=== PATIENT | male | born 1955 | race Caucasian/White ===

== ENCOUNTER → 2017-05-08 | Outpatient (CLI) | payer BC ==
[2017-05-08 10:59] LABS: CH 30.6; CHCM 35.1; HCT 40.7 % (39.0-53.0); HDW 2.93; MCH 30.3 pg (25.0-35.0); MCHC 34.5 g/dL (31.0-37.0); MCV 87.7 fL (80.0-100.0); RBC 4.64 m/uL (4.30-5.90); WBC 5.1 k/uL (3.8-10.6)
[2017-05-08 11:26] LABS: ALT 33 U/L (21-72); AST 29 U/L (17-59); Alkaline Phosphatase 65 U/L (38-126); Anion Gap 11 mmol/L; Blood Urea Nitrogen 16 mg/dL (9-20); Calcium 8.9 mg/dL (8.4-10.2); Carbon Dioxide 26 mmol/L (22-30); Chloride 106 mmol/L (98-107); Cholesterol 126 mg/dL (<200); Glucose 86 mg/dL (74-99); HDL Cholesterol 40 mg/dL (40-60); Non-African American GFR(MDRD) >60 (>60 ml/min/1.73 sqM); Potassium 4.4 mmol/L (3.5-5.1); Sodium 143 mmol/L (137-145); Total Bilirubin 1.5 mg/dL (0.2-1.3); Total Protein 6.7 g/dL (6.3-8.2); Triglycerides 78 mg/dL (<150)
== END | disposition home or self-care (01) ==
LOC: LABWHC1 10:11
PROVIDERS: ATTEND Internal Medicine Cardiovascular Disease
DX: I34.0 Nonrheumatic mitral (valve) insufficiency (principal)
CPT/HCPCS: 36415; 80053; 80061; 85027

== ENCOUNTER → 2020-06-16 | Outpatient (CLI) | payer MEDICARE, BC ==
[2020-06-16 17:19] LABS: Chol/HDL Ratio 2.84
== END | disposition home or self-care (01) ==
LOC: LABWHC1 07:16
PROVIDERS: ATTEND Internal Medicine Interventional Cardiology
DX: E78.2 Mixed hyperlipidemia (principal)
CPT/HCPCS: 36415; 80061; 84450; 84460

== ENCOUNTER → 2020-11-22 | Outpatient (CLI) | payer MEDICARE, BC ==
[2020-11-22 20:10] LABS: Chol/HDL Ratio 3.53
== END | disposition home or self-care (01) ==
LOC: LABWHC1 08:13
PROVIDERS: ATTEND Internal Medicine Cardiovascular Disease
DX: E78.2 Mixed hyperlipidemia (principal)
CPT/HCPCS: 36415; 80061; 84450; 84460

== ENCOUNTER → 2022-03-09 | Outpatient (CLI) | payer MEDICARE ==
--- NOTE | 2022-03-09 10:23 | XR ---
EXAMINATION TYPE: XR chest 2V DATE OF EXAM: 03/09/2022 COMPARISON: Chest x-ray January 25, 2011 HISTORY: Prostate cancer. TECHNIQUE: Frontal and lateral views of the chest are obtained. FINDINGS: There is chronic painful change without suspicious new focal air space opacity, pleural ef fusion, or pneumothorax seen. Cardiomegaly redemonstrated. Old fractures of the left lateral mid ribs again seen. Overlying sternal wires along with cardiac valve surgical prosthesis redemonstrated. IMPRESSION: Cardiomegaly and chronic changes without acute pulmonary process.
[2022-03-09 10:49] LABS: African American GFR (CKD) >90 (>60 ml/min/1.73 sqM); Blood Urea Nitrogen 15 mg/dL (9-20); Non-African American GFR(CKD) >90 (>60 ml/min/1.73 sqM)
--- NOTE | 2022-03-09 13:24 | CT ---
EXAMINATION TYPE: CT abdomen pelvis w con DATE OF EXAM: 03/09/2022 COMPARISON: None HISTORY: Prostate cancer Automated exposure control for dose reduction was used. TECHNIQUE: Helical acquisition of images was performed from the lung bases through the pelvis findin gs uneventful administration of oral and nonionic IV contrast. FINDINGS: The lung bases are clear. There is moderate cardiomegaly. The gallbladder is normal and there is no gallstone, wall thickening, pericholecystic fluid or disten tion. There is no biliary ductal dilatation. There is no focal mass or organomegaly involving the liver, pancreas, spleen or adrenal glands. The kidneys excrete contrast probably symmetrically and there is no solid renal mass or hydronephrosi s. The small simple cortical cyst of the anterior left kidney. There is no retroperitoneal adenopathy or hemorrhage in the caliber of the abdominal aorta is normal. There is mild to moderate arterioscle rotic calcification of the aorta.. The bowel loops are normal in caliber and there is no evidence of dilatation or obstruction. No infla mmatory changes are identified in the bowel wall or mesentery. There is no free intraperitoneal air or fluid. The prostate gland is markedly enlarged. There is no pelvic adenopathy, free fluid, mass or abscess. There is a single 13 mm sclerotic density in the right iliac bone which could represent metastatic di sease. A bone scan would be useful for further evaluation. IMPRESSION: 1. Moderate cardiomegaly. 2. Marked enlargement of the prostate gland. 3. Single sclerotic density in the right iliac wing and bone metastasis is not excluded. Bone scan wo uld be useful for further evaluation.
--- NOTE | 2022-03-09 14:27 | NM ---
EXAMINATION TYPE: NM bone scan whole body DATE OF EXAM: 03/09/2022 COMPARISON: CT abdomen and pelvis earlier today HISTORY: Prostate cancer. Delayed whole-body scanning was performed following the injection of 22.3 mCi Tc 99m MDP. Images acq uired 3 hours post injection. Whole body images in anterior and posterior projection along with addit ional spot views of the thorax and neck are acquired. FINDINGS: No suspicious increased radiotracer uptake to suggest metastatic disease to the bone or other signifi cant abnormality. Mild symmetric uptake bilateral knee joints felt to reflect products of degenerativ e change. IMPRESSION: As above.
== END | disposition home or self-care (01) ==
LOC: RADNMMAIN 09:38
PROVIDERS: ATTEND Urology
DX: C61 Malignant neoplasm of prostate (principal); I51.7 Cardiomegaly; R93.7 Abnormal findings on diagnostic imaging of other parts of musculoskeletal system
CPT/HCPCS: 82565; 84520; 71046; 74177; 36415; 78306; A9503; Q9967

== ENCOUNTER → 2022-04-19 | Outpatient (CLI) | payer MEDICARE ==
[2022-04-19 23:01] LABS: Basophils # (A) 0.01 X 10*3/uL (0.00-0.10); Basophils % (A) 0.2 %; Eosinophils # (A) 0.14 X 10*3/uL (0.04-0.35); Eosinophils % (A) 2.4 %; HCT 37.7 % (39.6-50.0); HGB 11.9 g/dL (13.0-17.0); Immature Grans, Automated 0.5 %; Lymphocytes # (A) 1.67 X 10*3/uL (0.90-5.00); Lymphocytes % (A) 28.2 %; MCHC 31.6 g/dL (32.0-37.0); MCV 91.7 fL (80.0-97.0); Mean Platelet Volume 11.9 fL (9.5-12.2); Monocytes # (A) 0.56 X 10*3/uL (0.20-1.00); Monocytes % (A) 9.4 %; NRBC Per 100 WBC 0 /100 WBCS (0.0-0.0); Neutrophils # (A) 3.52 X 10*3/uL (1.80-7.70); Neutrophils % (A) 59.3 %; Platelet Count 170 X 10*3/uL (140-440); RBC 4.11 X 10*6/uL (4.40-5.60); RDW 14.6 % (11.5-14.5); WBC 5.93 X 10*3/uL (4.50-10.00)
[2022-04-19 23:08] LABS: African American GFR (CKD) 106.7 (60.0-200.0); Albumin 4.1 g/dL (3.8-4.9); Albumin/Globulin Ratio 2.08 (1.60-3.17); BUN/Creat Ratio 12.29 Ratio (12.00-20.00); Blood Urea Nitrogen 9.8 mg/dL (9.0-27.0); Calcium 8.8 mg/dL (8.7-10.3); Carbon Dioxide 26.4 mmol/L (20.0-27.5); Potassium 4.6 mmol/L (3.5-5.5); Total Bilirubin 0.5 mg/dL (0.30-1.20)
[2022-04-20 02:59] LABS: Appearance,Urine Clear (Clear); Bilirubin,Urine Negative (Negative); Blood,Urine Negative (Negative); Color,Urine Yellow (Yellow); Ketones,Urine Negative (Negative); Nitrite,Urine Negative (Negative); PH, Urine 5.5 (5.0-8.0); Specific Gravity,Urine 1.009 (1.001-1.030)
== END | disposition home or self-care (01) ==
LOC: LABPAT 08:25
PROVIDERS: ATTEND Urology
DX: Z01.812 Encounter for preprocedural laboratory examination (principal); C61 Malignant neoplasm of prostate
CPT/HCPCS: 36415; 80053; 81003; 85025; 87086

== ENCOUNTER → 2022-05-18 | Outpatient (CLI) | payer MEDICARE ==
[2022-05-18 14:23] LABS: Basophils # (A) 0.01 X 10*3/uL (0.00-0.10); Basophils % (A) 0.2 %; Eosinophils # (A) 0.15 X 10*3/uL (0.04-0.35); Eosinophils % (A) 2.5 %; HCT 41.3 % (39.6-50.0); Immature Grans, Automated 0.5 %; Lymphocytes # (A) 1.48 X 10*3/uL (0.90-5.00); Lymphocytes % (A) 25.1 %; MCH 28.2 pg (27.0-32.0); MCHC 31.5 g/dL (32.0-37.0); MCV 89.6 fL (80.0-97.0); Mean Platelet Volume 11.8 fL (9.5-12.2); Monocytes # (A) 0.48 X 10*3/uL (0.20-1.00); Monocytes % (A) 8.1 %; NRBC Per 100 WBC 0 /100 WBCS (0.0-0.0); Neutrophils # (A) 3.75 X 10*3/uL (1.80-7.70); Neutrophils % (A) 63.6 %; Platelet Count 141 X 10*3/uL (140-440); RBC 4.61 X 10*6/uL (4.40-5.60); RDW 14.4 % (11.5-14.5)
[2022-05-18 15:42] LABS: African American GFR (CKD) 101.4 (60.0-200.0); Albumin 4.3 g/dL (3.8-4.9); Albumin/Globulin Ratio 1.95 (1.60-3.17); Anion Gap 11.9 mmol/L (10.00-18.00); BUN/Creat Ratio 11.78 Ratio (12.00-20.00); Blood Urea Nitrogen 10.6 mg/dL (9.0-27.0); Calcium 8.7 mg/dL (8.7-10.3); Carbon Dioxide 20.1 mmol/L (20.0-27.5); Globulin 2.2 g/dL (1.6-3.3); Non-African American GFR(CKD) 87.5 (60.0-200.0); Potassium 4.6 mmol/L (3.5-5.5); Total Bilirubin 0.7 mg/dL (0.30-1.20); Total Protein 6.5 g/dL (6.2-8.2)
[2022-05-18 18:15] LABS: Appearance,Urine Clear (Clear); Bilirubin,Urine Negative (Negative); Blood,Urine Negative (Negative); Color,Urine Yellow (Yellow); Ketones,Urine Negative (Negative); Nitrite,Urine Negative (Negative); PH, Urine 5.5 (5.0-8.0); Specific Gravity,Urine 1.011 (1.001-1.030)
== END | disposition home or self-care (01) ==
LOC: LABPAT 09:19
PROVIDERS: ATTEND Urology
DX: Z01.812 Encounter for preprocedural laboratory examination (principal); C61 Malignant neoplasm of prostate; R31.29 Other microscopic hematuria
CPT/HCPCS: 80053; 81003; 85025; 86850; 86900; 86901; 87086

== ENCOUNTER 2022-05-24 09:10 | Observation (INO) | payer MEDICARE ==
[2022-05-18 14:23] LABS: Basophils # (A) 0.01 X 10*3/uL (0.00-0.10); Basophils % (A) 0.2 %; Eosinophils # (A) 0.15 X 10*3/uL (0.04-0.35); Eosinophils % (A) 2.5 %; HCT 41.3 % (39.6-50.0); Immature Grans, Automated 0.5 %; Lymphocytes # (A) 1.48 X 10*3/uL (0.90-5.00); Lymphocytes % (A) 25.1 %; MCH 28.2 pg (27.0-32.0); MCHC 31.5 g/dL (32.0-37.0); MCV 89.6 fL (80.0-97.0); Mean Platelet Volume 11.8 fL (9.5-12.2); Monocytes # (A) 0.48 X 10*3/uL (0.20-1.00); Monocytes % (A) 8.1 %; NRBC Per 100 WBC 0 /100 WBCS (0.0-0.0); Neutrophils # (A) 3.75 X 10*3/uL (1.80-7.70); Neutrophils % (A) 63.6 %; Platelet Count 141 X 10*3/uL (140-440); RBC 4.61 X 10*6/uL (4.40-5.60); RDW 14.4 % (11.5-14.5)
[2022-05-18 15:42] LABS: African American GFR (CKD) 101.4 (60.0-200.0); Albumin 4.3 g/dL (3.8-4.9); Albumin/Globulin Ratio 1.95 (1.60-3.17); Anion Gap 11.9 mmol/L (10.00-18.00); BUN/Creat Ratio 11.78 Ratio (12.00-20.00); Blood Urea Nitrogen 10.6 mg/dL (9.0-27.0); Calcium 8.7 mg/dL (8.7-10.3); Carbon Dioxide 20.1 mmol/L (20.0-27.5); Globulin 2.2 g/dL (1.6-3.3); Non-African American GFR(CKD) 87.5 (60.0-200.0); Potassium 4.6 mmol/L (3.5-5.5); Total Bilirubin 0.7 mg/dL (0.30-1.20); Total Protein 6.5 g/dL (6.2-8.2)
[2022-05-18 18:15] LABS: Appearance,Urine Clear (Clear); Bilirubin,Urine Negative (Negative); Blood,Urine Negative (Negative); Color,Urine Yellow (Yellow); Ketones,Urine Negative (Negative); Nitrite,Urine Negative (Negative); PH, Urine 5.5 (5.0-8.0); Specific Gravity,Urine 1.011 (1.001-1.030)
[2022-05-22 14:44] VITALS: BMI 29.5
[~2022-05-24 09:10] MED LIST: DEXAMETHASONE SOD PHOSPHATE 4 MG/ML 1 ML VIAL IV ONE; HYDROmorphone 0.5 MG/0.5 ML SYRINGE IVP PRN; LIDOCAINE 1% (10MG/ML) FOR IV START INTRADERMA PRN; MIDAZOLAM 2 MG/2 ML VIAL IV PRN; ONDANSETRON 4 MG/2 ML VIAL IVP ONE
[2022-05-24] MEDS: LACTATED RINGERS 1,000 ML IV SCH (09:52)
--- NOTE | 2022-05-24 10:23 | P.HPIHPCON ---
History of Present Illness H&P Date: 05/24/22 Chief Complaint: Prostate cancer This is a 67-year-old male with history of Tarrs 7(3+4) prostate cancer, and 146 g prostate. Option of radical prostatectomy versus radiation therapy were discussed with him in detail, given his urinary symptoms discussed with him that robotic prostatectomy will be preferred approach. Risk of bleeding, infection, urinary incontinence were discussed with the patient. He understood all the risk and agreed to proceed. Surgery will performed by Dr. Hastings Consent for Procedure: I have explained the operation/procedure to the patient, including the risks, benefits, side effects, alternative therapies (including not receiving the proposed treatment or service), the likelihood of the patient achieving his/her goals, and potential recuperation problems for the procedure/sedation/analgesia, as well as any blood products, if indicated. I also explained to the patient the risks, benefits and side effects of the alternatives, as well as the risks related to not receiving the proposed procedure, care, treatment, or services. Past Medical History Past Medical History: Coronary Artery Disease (CAD), Cancer, Hyperlipidemia, Hypertension, Prostate Disorder, Sleep Apnea/CPAP/BIPAP Additional Past Medical History / Comment(s): Mechanical heart valve, [facility] [place]. Hx BPH; Prostate shows traces of cancer cells. History of Any Multi-Drug Resistant Organisms: None Reported Past Surgical History: Cardiac Valve Replacement, Heart Catheterization Additional Past Surgical History / Comment(s): UPPP surgery. Mitral valve repair x2, then a mechanical heart valve replacement 2010. Cataracts bilat. Past Anesthesia/Blood Transfusion Reactions: No Reported Reaction, Motion Sickness Smoking Status: Former smoker - Past Family History Father Family Medical History: Prostate Disorder Additional Family Medical History / Comment(s): prostate cancer Medications and Allergies Home Medications Medication Instructions Recorded Confirmed Type Aspirin [Adult Low Dose Aspirin EC] 81 mg PO DAILY 05/22/22 05/24/22 History Finasteride [Proscar] 5 mg PO HS 05/22/22 05/24/22 History Glucos Sul 2Kcl/MSM/Chond/C/Mn 1 each PO DAILY 05/22/22 05/24/22 History [Glucosamine Chondroitin Cap] Simvastatin [Zocor] 20 mg PO HS 05/22/22 05/24/22 History Tamsulosin [Flomax] 0.4 mg PO HS 05/22/22 05/24/22 History Warfarin [Coumadin] 2.5 mg PO SUTUTHSA 05/22/22 05/24/22 History Warfarin [Coumadin] 5 mg PO MOWEFR 05/22/22 05/24/22 History atenoloL [Tenormin] 25 mg PO DAILY 05/22/22 05/24/22 History lisinopriL [Zestril] 20 mg PO DAILY 05/22/22 05/24/22 History Enoxaparin [Lovenox] 60 mg SQ Q12H 05/24/22 05/24/22 History Allergies Allergy/AdvReac Type Severity Reaction Status Date / Time No Known Allergies Allergy Verified 05/24/22 09:50 Surgical - Exam Vital Signs Temp Pulse Resp BP Pulse Ox 96.7 F L 65 18 144/83 98 05/24/22 09:51 05/24/22 09:51 05/24/22 09:51 05/24/22 09:51 05/24/22 09:51 - General no distress, no pain - ENT normal nares, normal mucosa - Respiratory normal expansion, normal respiratory effort Results - Labs 05/18/22 09:37 05/18/22 09:37 Assessment and Plan Assessment: Or for robotic prostatectomy
[2022-05-24 10:37] LABS: INR 1.1 (<1.2); Prothrombin Time 11.5 sec (9.0-12.0)
[2022-05-24] MEDS ORDERED: ROCURONIUM 10 MG/ML (5 ML VIAL) IV ONE (11:10)
[2022-05-24] MEDS ORDERED: NEOSTIGMINE 1 MG/ML 10 ML VIAL ONE (11:10)
[2022-05-24] MEDS ORDERED: GLYCOPYRROLATE 0.2 MG/ML 2 ML VIAL ONE (11:10)
[2022-05-24] MEDS ORDERED: HYDROmorphone (PF) 1 MG/ML ONE (11:10)
[2022-05-24] MEDS ORDERED: MIDAZOLAM 2 MG/2 ML VIAL ONE (11:10)
[2022-05-24] MEDS ORDERED: SUCCINYLCHOLINE CHLORIDE VIAL 200 MG/10 ML VIAL IV ONE (11:10)
[2022-05-24] MEDS ORDERED: LIDOCAINE 2% INJ 20 MG/ML (2 ML VIAL) ONE (11:10)
[2022-05-24] MEDS ORDERED: SUCCINYLCHOLINE CHLORIDE 100 MG/5 ML SYR IV ONE (11:10)
[2022-05-24] MEDS ORDERED: fentaNYL (PF) 50 MCG/ML 2 ML AMP ONE (11:10)
[2022-05-24] MEDS ORDERED: LACTATED RINGERS 1,000 ML IV ONE (11:14)
[2022-05-24] MEDS ORDERED: BUPIVACAIN-EPI 0.25%-1:200,000 30 ML VIAL SQ ONE (11:59)
--- NOTE | 2022-05-24 14:02 | P.OP ---
Date of Procedure: 05/24/22 Preoperative Diagnosis: Prostate cancer Postoperative Diagnosis: prostate cancer umbilical hernia Procedure(s) Performed: Robotic radical prostatectomy Robotic bilateral extended pelvic lymphadenectomy Repair of umbilical hernia Anesthesia: MAXX Surgeon: Elsie Hastings Estimated Blood Loss (ml): 50 IV fluids (ml): 1,100 Urine output (ml): 500 Pathology: other (prostate and semina vesicles. right and left pelvic lymph nodes) Condition: stable Disposition: PACU Indications for Procedure: prostate cancer. BPH with urinary obstruction Operative Findings: Large prostate. pelvic lipomatosis, right inguinal hernia, umbilical hernia Description of Procedure: Preoperative Diagnosis:PROSTATE CANCER Postoperative Diagnosis: PROSTATE CANCER Procedure(s): 1. Robotic Radical Prostatectomy 2. Robotic Extended Pelvic lymphadenectomy 3. Vesico urethral reconstruction 4. Umbilical hernia repair Indications for Procedure:same Estimated Blood Loss:50 ml Counts: All counts correct at end of the procedure Drains and/or Packs:none Significant Events:large prostate, umbilical hernia, right inguinal hernia, pelvic lipomatosis Procedure Details: This is a patient with a history of prostate cancer. The procedure of robot assisted laparoscopic radical prostatectomy was discussed with the patient including the potential risks and complications of the procedure. He elected to proceed with the operation. A nodule was notdetected on digital exam under anesthesia. The patient was placed in a supine, Trendelenberg position with adequate padding of the pressure points, shoulders, back, legs and arms. He was then prepped and draped in the standard fashion. A 18F metcalf catheter was placed to gravity drainage. A Veress needle was placed through a juanjo-umbilical puncture and a pneumo-peritoneum created to 20mmHg during port placement which is thereafter lowered to 15mmHg. A 8mm port on the umbilicus was placed for the scope. Next, under vision a 8mm robotic ports was placed lateral to each rectus slightly below the camera port. The right pest controller assistant right iliac fossa 12mm port and right paramedian 5mm port were placed followed by the left iliac fossa 5mm port. The robot was then docked to the 8mm robotic ports and then each robotic arm and tower was checked in relation to the patient's legs and hands to avoid inadvertent compression. The peritoneal cavity was inspected and then an inverted U-shaped incision began laterally to the left medial umbilical ligament and extended high across the midline to the right umbilical ligament. The limbs of the "U" extended to the level of the vasa on both sides. We next developed the preperitoneal space and the space of Retzius. Cautery was used to dissected the bladder away from the prostate. After the anterior bladder neck was incised and the bladder entered the the posterior bladder neck was exposed and the ureteral orifices identified. The posterior bladder neck was then incised and dissected away from the prostate. The bladder neck was noted to be normaland did notrequire reconstruction. The vas and the seminal vesicles were now exposed and dissected to their insertions into the prostate and were not spared. The posterior layer of the Denonvillier's fascia was incised to enter into the plane between prostate and perirectal fat. Each lateral pedicle was controlled withclips and cautery for hemostasis. Nerve preservation was performed as listed above. The puboprostatic ligament was incised where it inserted into the apex of the prostate and a plane between urethra and dorsal venous complex developed to expose the anterior urethral surface. The anterior wall of the urethra was transected with the scissors a few millimeters distal to the apex of the prostate. DV suture was placed. The freed specimen was then inspected and placed in an endo-catch specimen retrieval bag. The prostate was removed following the completion of the anastomosis. Internal and External Iliac lymph node packets were dissected after careful visualization of the hypogastric artery and obturator nerve. There was attention paid to hemostasis with judicious use of cautery. Two 3-0 V-Lock stitches (MVAC) tied together to form a pledget were used to complete the running continuous circumferential urethrovesical anastamosis with dual layer reconstruction. The outer layer V-Lock suture was placed initially to reapproximate Denonvillier's fascia posteriorly before placing the inner layer MVAC suture as the urethrovesical anastamosis proper. After the inner layer was tied, the anastamosis was checked for leaks before closing the outer layer ante riorly. A new 20 Greek Metcalf catheter was introduced and inflated to 20cc. The bladder was filled with 250 cc saline, with the balloon to test the integrity of the anastomosis. No leak was identified. The specimen was removed after enlarging the umbilical port incision as required. The umbilical fascia was closed with PDS suture and closed in layers. All ports were closed with a subcuticular stitch. Sponge, instrument, and needle counts were correct at the end of the case. The patient tolerated the procedure well and was accompanied to the recovery room in stable condition. Implants:none Complications:none Specimen(s) Removed:prostate and seminal vesicles. Right and left pelvic lymph nodes Post-Op Condition of Patient: stable
[2022-05-24] MEDS: HYDROcodone/APAP 5-325MG 1 EACH TAB PO PRN (19:09)
[2022-05-24] MEDS: D5-0.45% NACL WITH KCL 20MEQ/L 1,000 ML IV SCH ×2 (20:44→22:02)
[2022-05-24] MEDS: ATORVASTATIN 10 MG TAB PO SCH (21:29)
[2022-05-25] MEDS: HYDROmorphone 1 MG/ML 1 ML SYRINGE IVP PRN ×2 (01:48→05:27)
[2022-05-25] MEDS: LACTATED RINGERS 1,000 ML IV SCH ×2 (07:15→23:28)
[2022-05-25] MEDS: lisinopriL 20 MG TAB PO SCH (07:27)
[2022-05-25] MEDS: atenoloL 25 MG TAB PO SCH (07:27)
--- NOTE | 2022-05-25 08:05 | P.PN ---
Subjective Progress Note Date: 05/25/22 The patient is in his first postoperative day from a radical prostatectomy robotic by . His vital signs are stable. His urine output is good. Urine is a bit bloody. He has some nausea. His abdomen is relatively soft. He has some shoulder pain from the robotic procedure. There is no evidence of subcutaneous emphysema. I will allow him to continue to rest today. Ambulate later. We will see how he does as to whether he is ready for discharge home tomorrow. Objective - Vital Signs Vital signs: Vital Signs Temp 98.5 F 05/25/22 01:29 Pulse 82 05/25/22 01:29 Resp 19 05/25/22 01:29 BP 144/74 05/25/22 07:29 Pulse Ox 97 05/25/22 01:29 FiO2 Intake & Output 05/24/22 05/25/22 05/25/22 18:59 06:59 18:59 Intake Total 1696 Output Total 120 300 Balance 1576 -300 Weight 95.5 kg Intake: IV 1400 Oral 296 Output: Urine 70 300 Estimated Blood Loss 50 Other: Voiding Method Indwelling Catheter - Labs CBC & Chem 7: 05/18/22 09:37 05/18/22 09:37
[2022-05-25] MEDS: D5-0.45% NACL WITH KCL 20MEQ/L 1,000 ML IV SCH ×2 (09:41→17:08)
[2022-05-25] MEDS: HYDROcodone/APAP 5-325MG 1 EACH TAB PO PRN ×2 (13:34→21:59)
[2022-05-25] MEDS: ATORVASTATIN 10 MG TAB PO SCH (21:59)
[2022-05-26] MEDS: D5-0.45% NACL WITH KCL 20MEQ/L 1,000 ML IV SCH ×3 (01:49→14:56)
[2022-05-26] MEDS: HYDROcodone/APAP 5-325MG 1 EACH TAB PO PRN ×3 (07:16→22:08)
[2022-05-26] MEDS: lisinopriL 20 MG TAB PO SCH (07:17)
[2022-05-26] MEDS: atenoloL 25 MG TAB PO SCH (07:17)
[2022-05-26 12:45] LABS: Basophils % (A) 0 %; Eosinophils # (A) 0.4 k/uL (0-0.7); Eosinophils % (A) 3 %; HCT 38.1 % (39.0-53.0); HGB 12.2 gm/dL (13.0-17.5); Hypochromasia Slight; Lymphocytes % (A) 9 %; MCH 29.7 pg (25.0-35.0); MCV 92.6 fL (80.0-100.0); Mean Platelet Volume 9.6; Monocytes # (A) 0.7 k/uL (0-1.0); Monocytes % (A) 7 %; Neutrophils # (A) 9.1 k/uL (1.3-7.7); Neutrophils % (A) 80 %; Platelet Count 170 k/uL (150-450); RBC 4.12 m/uL (4.30-5.90); RDW 14.3 % (11.5-15.5); WBC 11.5 k/uL (3.8-10.6)
[2022-05-26 12:57] LABS: Prothrombin Time 11.2 sec (9.0-12.0)
--- NOTE | 2022-05-26 14:45 | CONS ---
CONSULTATION REASON FOR CONSULTATION: anticoag management, requested by urology. HISTORY OF PRESENT ILLNESS: This 67-year-old gentleman with a past medical history of multiple medical problems, including mechanical valve replacement, underwent robotic radical prostatectomy for prostate cancer. The patient had interrupted anticoagulation prior to surgery and was on Lovenox. Currently there is some hematuria in the Howell catheter. The patient is slated to be discharged today. There is no history of any chest pain, palpitations, shortness of breath, hematochezia, melena. PAST MEDICAL HISTORY: History of cardiac mechanical valve replacement, mitral valve, history of hypertension, hyperlipidemia, multiple medical issues. HOME MEDICATIONS: Reviewed. They include Zestril and Coumadin. Doses and the rest of the medications are reviewed. ALLERGIES: NONE. FAMILY HISTORY: History of prostate disease in the family. SOCIAL HISTORY: Previous history of smoking. REVIEW OF SYSTEMS: Fourteen-point review of systems negative except as mentioned earlier. PHYSICAL EXAMINATION: Pulse 70, blood pressure 140/70, respiration 15. HEENT: Conjunctivae normal. NECK: No jugular venous distention. CARDIOVASCULAR: S1. S2 prosthetic. CHEST: Clear to auscultation. ABDOMEN: Soft, nontender. LEGS: No edema. No swelling. NERVOUS SYSTEM: No focal deficit. SKIN: No ulcer, rash, bleeding. JOINTS: No active deforming arthropathy. Howell catheter with some minimal hematuria, probably clearing. LABS: Hemoglobin 12.2. ASSESSMENT: 1. Status post radical prostatectomy. 2. History of mitral valve mechanical valve replacement. 3. Hypertension. 4. Hyperlipidemia. 5. Multiple medical issues. RECOMMENDATIONS AND DISCUSSION: In this 67-year-old gentleman who presented after surgery, at this time patient appears to be stable. I would recommend resuming the dose of Coumadin and check the PT/INR early next week with Cardiology, who is following the PT/INR. Otherwise, I would also recommend bridging once the hematuria is cleared. Otherwise, we will follow the patient closely. The rest of medications can be continued. I also recommend close followup with Dr. Xiong after discharge. Further recommendations to follow. MMODL / IJN: [id number] / MTDD
[2022-05-26] MEDS ORDERED: WARFARIN 5 MG TAB PO ONE (18:00)
[2022-05-26] MEDS: ATORVASTATIN 10 MG TAB PO SCH (20:32)
[2022-05-26] MEDS ORDERED: WARFARIN 2.5 MG TAB PO SCH (21:00)
[2022-05-27] MEDS: D5-0.45% NACL WITH KCL 20MEQ/L 1,000 ML IV SCH ×2 (00:19→08:12)
[2022-05-27 01:10] VITALS: RESP 18
[2022-05-27] MEDS: LACTATED RINGERS 1,000 ML IV SCH (06:01)
[2022-05-27 07:48] VITALS: BP 155/75; PULSE 76; TEMP 97
[2022-05-27 07:49] LABS: Prothrombin Time 10.9 sec (9.0-12.0)
[2022-05-27] MEDS: lisinopriL 20 MG TAB PO SCH (08:08)
[2022-05-27] MEDS: atenoloL 25 MG TAB PO SCH (08:08)
[2022-05-27] MEDS: HYDROcodone/APAP 5-325MG 1 EACH TAB PO PRN (08:11)
--- NOTE | 2022-05-27 17:36 | P.PN ---
Subjective Progress Note Date: 05/27/22 This is a 67 year old male who was admitted under urology services and underwent radical prostatectomy for prostate cancer and continues with indwelling metcalf catheter. Patient takes coumadin for valve replacement and has been resumed. Patient was also taking lovenox this past week prior to surgery. INR is 1.0 recommend continuing coumadin and hold lovenox for now and monitor INR in 2 days and follow up with cardiology that manages his coumadin. Patient is afebrile and denies chest pain or shortness of breath. Patient denies nausea or vomiting and tolerating diet. Patient to be discharged today. Review of systems: Constitutional: No reports of fatigue, fever, or chills Cardiovascular: No reports of chest pain or palpitations Respiratory: No reports of shortness of breath or cough GI: No reports of nausea, no reports of of vomiting, no reports of diarrhea : No reports of dysuria or retention, reports metcalf catheter with some blood noted Neurovascular: no reports of generalized weakness All medications have been reviewed PHYSICAL EXAMINATION: GENERAL: The patient is alert and oriented x4, Well developed, well nourished. Obese. HEENT: Pupils are round and equally reacting to light. EOMI. no scleral icterus. No conjunctival pallor. Normocephalic, atraumatic. No pharyngeal erythema. No thyromegaly. CARDIOVASCULAR: S1 and S2 muffled PULMONARY: diminished breath sounds bilaterally with no wheezing or rhonchi noted. ABDOMEN: soft. non tender on exam. Obese. non-distended, normal bowel sounds. No palpable organomegaly. MUSCULOSKELETAL: No joint swelling or deformity. EXTREMITIES: No cyanosis, clubbing, or pedal edema. NEUROLOGICAL: Gross neurological examination did not reveal any focal deficits. SKIN: No rashes. Assessment: Status post radical prostatectomy History of mitral valve mechanical valve replacement Hyperlipidemia Hypertension Multiple medical issues GI prophylaxis DVT prophylaxis Full code Plan: Recommend to continue with current medications and management and have resumed coumadin. INR is 1 and bleeding has improved. Recommend continuing coumadin and hold lovenox for now and follow up with labs INR in 2 days to monitor levels and then may possibly need to bridge with lovenox to therapeutic range again. Patient has urology appointment this week. Patient is being discharged today and prescription provided. Patient to follow up with his material checker and Dr. Xiong this week. Thank you for this consultation. The impression and plan of care has been dictated by Connie De La Cruz, nurse practitioner as directed. MD Tyler I have performed a history and examination and MDM of this patient, discussed the same with the dictator, and agree with the dictator's assessment and plan as written ,documented as a scribe. Based on total visit time, I have performed more than 50% of the visit. Any additional findings or plans will be noted. Objective - Vital Signs Vital signs: Vital Signs Temp 97.0 F L 05/27/22 07:47 Pulse 76 05/27/22 07:47 Resp 18 05/27/22 07:47 BP 155/75 05/27/22 07:47 Pulse Ox 94 L 05/27/22 07:47 FiO2 Intake & Output 05/26/22 05/27/22 05/27/22 18:59 06:59 18:59 Output Total 1000 3050 Balance -1000 -3050 Output: Urine 1000 3050 Other: Voiding Method Indwelling Catheter Indwelling Catheter Indwelling Catheter - Labs CBC & Chem 7: 05/26/22 12:33 05/18/22 09:37 Labs: Abnormal Lab Results - Last 24 Hours (Table) 05/26/22 Range/Units 12:33 WBC 11.5 H (3.8-10.6) k/uL RBC 4.12 L (4.30-5.90) m/uL Hgb 12.2 L (13.0-17.5) gm/dL Hct 38.1 L (39.0-53.0) % Neutrophils # 9.1 H (1.3-7.7) k/uL
[2022-05-27] MEDS ORDERED: WARFARIN 5 MG TAB PO ONE (18:00)
--- NOTE | 2022-05-28 13:17 | P.PN ---
Subjective Progress Note Date: 05/26/22 No acute overnight events, still having some incisional pain. Denies any nausea or vomiting. Has not passed flatus Objective - Vital Signs Vital signs: Vital Signs Temp 97.0 F L 05/27/22 07:47 Pulse 76 05/27/22 07:47 Resp 18 05/27/22 07:47 BP 155/75 05/27/22 07:47 Pulse Ox 94 L 05/27/22 07:47 FiO2 Intake & Output 05/27/22 05/28/22 05/28/22 18:59 06:59 18:59 Output Total 650 Balance -650 Output: Urine 650 Other: Voiding Method Indwelling Catheter - Constitutional General appearance: Present: no acute distress - Gastrointestinal General gastrointestinal: Present: soft. Absent: distended, tenderness - Psychiatric Psychiatric: Present: A&O x's 3 - Labs CBC & Chem 7: 05/26/22 12:33 05/18/22 09:37 Assessment and Plan Assessment: Postoperative day #2 status post robotic prostatectomy, -We'll obtain an internal medicine consult for anticoagulation recommendation -potential discharge home today versus tomorrow
--- NOTE | 2022-05-28 13:19 | P.DS ---
Providers Date of admission: 05/25/22 11:11 Expected date of discharge: 05/27/22 Attending physician: Elsie Hastings Consults: 05/26/22 08:47 Consult Physician Routine Consulting Provider: Antonieta Easley Consult Reason/Comments: medical management/ restart anticoagulant Do you want consulting provider notified?: Yes Primary care physician: Inga Wright [facility] Course: This is a 67-year-old male with history of prostate cancer. Underwent robotic prostatectomy on May [address] Hastings. Patient was admitted to the hospital postoperatively. He did have some gross hematuria postoperatively which resolved on postop day #2. He was discharged home on postop day #3, at time of discharge he was tolerating a diet, ambulating, pain was controlled. Internal medicine was consulted during the hospital admission for anticoagulation recommendation Plan - Discharge Summary Discharge Rx Participant: Yes New Discharge Prescriptions: New Cephalexin [Keflex] 500 mg PO Q12HR 3 Days #6 cap HYDROcodone/APAP 5-325MG [Gregory 5-325] 1 tab PO Q6HR PRN 3 Days #12 tab PRN Reason: Pain Continue Simvastatin [Zocor] 20 mg PO HS Warfarin [Coumadin] 5 mg PO MOWEFR Glucos Sul 2Kcl/MSM/Chond/C/Mn [Glucosamine Chondroitin Cap] 1 each PO DAILY Warfarin [Coumadin] 2.5 mg PO SUTUTHSA Aspirin [Adult Low Dose Aspirin EC] 81 mg PO DAILY atenoloL [Tenormin] 25 mg PO DAILY lisinopriL [Zestril] 20 mg PO DAILY Discontinued Tamsulosin [Flomax] 0.4 mg PO HS Finasteride [Proscar] 5 mg PO HS Enoxaparin [Lovenox] 60 mg SQ Q12H Discharge Medication List Aspirin [Adult Low Dose Aspirin EC] 81 mg PO DAILY 05/22/22 [History] Glucos Sul 2Kcl/MSM/Chond/C/Mn [Glucosamine Chondroitin Cap] 1 each PO DAILY 05/22/22 [History] Simvastatin [Zocor] 20 mg PO HS 05/22/22 [History] Warfarin [Coumadin] 2.5 mg PO SUTUTHSA 05/22/22 [History] Warfarin [Coumadin] 5 mg PO MOWEFR 05/22/22 [History] atenoloL [Tenormin] 25 mg PO DAILY 05/22/22 [History] lisinopriL [Zestril] 20 mg PO DAILY 05/22/22 [History] Cephalexin [Keflex] 500 mg PO Q12HR 3 Days #6 cap 05/27/22 [Rx] HYDROcodone/APAP 5-325MG [Gregory 5-325] 1 tab PO Q6HR PRN 3 Days #12 tab 05/27/22 [Rx] Follow up Appointment(s)/Referral(s): Elsie Hastings MD [STAFF PHYSICIAN] - 1 Week Xander Schrader MD [STAFF PHYSICIAN] - 1 Week Ambulatory/Diagnostic Orders: Prothrombin Time INR [LAB.AMB] Time Frame: 3 Days, Location: None Selected Patient Instructions/Handouts: Howell Catheter Placement and Care (DC), Robot Assisted Laparoscopic Prostatectomy (DC) Activity/Diet/Wound Care/Special Instructions: You can discontinue taking the Flomax and the Proscar Increase fluid intake it's normal to see blood in the urine No heavy lifting or straining You may shower no baths Start your Keflex prescription 1 day prior to your follow-up appointment Resume Coumadin and hold Lovenox for the next 1-2 days and have repeat PT/INR redrawn and then make continue Lovenox if INR is still subtherapeutic and strongly encouraged following up with program lead about anticoagulation this week Discharge Disposition: HOME SELF-CARE
== END 2022-05-27 11:44 | disposition home or self-care (01) ==
LOC: OR 09:10 → 4SSUR 13:59 → OR 05-25 11:11 → 4SSUR 05-25 11:11
PROVIDERS: ADMIT Urology; ATTEND Urology
DX: C61 Malignant neoplasm of prostate (principal); K42.9 Umbilical hernia without obstruction or gangrene; K40.90 Unilateral inguinal hernia, without obstruction or gangrene, not specified as recurrent; E88.2 Lipomatosis, not elsewhere classified; I48.21 Permanent atrial fibrillation; E78.2 Mixed hyperlipidemia; I10 Essential (primary) hypertension; R31.0 Gross hematuria; I34.0 Nonrheumatic mitral (valve) insufficiency; G47.30 Sleep apnea, unspecified; Z95.2 Presence of prosthetic heart valve; Z87.891 Personal history of nicotine dependence; I25.10 Atherosclerotic heart disease of native coronary artery without angina pectoris; Z98.890 Other specified postprocedural states; Z98.42 Cataract extraction status, left eye; Z98.41 Cataract extraction status, right eye; Z79.01 Long term (current) use of anticoagulants; Z79.02 Long term (current) use of antithrombotics/antiplatelets; Z79.82 Long term (current) use of aspirin; Z79.899 Other long term (current) drug therapy; Z84.2 Family history of other diseases of the genitourinary system
CPT/HCPCS: 86900; 86901; 80053; 85025 ×2; 85610 ×3; 86850; 81003; 88307; 88309; 87086; 55866; 38589; G0378 ×3; J2250; J0330 ×2; J1100; J2710; J0690; J2405; J3010; J1170 ×3; J2001

== ENCOUNTER 2022-06-14 12:09 | Emergency (ER) | payer MEDICARE ==
[2022-06-14 12:15] VITALS: RESP 18; TEMP 98.1
[2022-06-14] MEDS ORDERED: INSULIN REGULAR BOLUS (FROM DRIP BAG) IV ONE (12:29)
[2022-06-14] MEDS ORDERED: Magnesium Replacement Protocol 1 EACH MISC MISCELLANE PRN (12:29)
[2022-06-14] MEDS ORDERED: Potassium Replacement Protocol 1 EACH MISC MISCELLANE PRN (12:29)
[2022-06-14] MEDS ORDERED: SODIUM CHLORIDE 0.9% 1,000 ML IV SCH (12:30)
[2022-06-14 12:57] LABS: Appearance,Urine Turbid (Clear); Bacteria,Urine Many /hpf; Bilirubin,Urine Negative (Negative); Blood,Urine Large (Negative); Color,Urine Light Brown; Glucose,Urine (UA) Negative (Negative); Ketones,Urine Negative (Negative); Leukocyte Esterase,Urine Large (Negative); Mucus,Urine Rare /hpf; Nitrite,Urine Negative (Negative); PH, Urine 6.5 (5.0-8.0); Protein,Urine 2+ (Negative); RBC,Urine >182 /hpf (0-5); Urobilinogen,Urine <2.0 mg/dL (<2.0); WBC,Urine >182 /hpf (0-5)
[2022-06-14] MEDS ORDERED: INSULIN REGULAR 100 UNIT in SODIUM CHLORIDE 0.9% 100 ML IV SCH (13:00)
--- NOTE | 2022-06-14 13:07 | ED ---
General Adult HPI - General Chief complaint: Urogenital Stated complaint: unable to urinate Time Seen by Provider: 06/14/22 12:15 Source: patient, RN notes reviewed, old records reviewed Mode of arrival: ambulatory Limitations: no limitations - History of Present Illness Initial comments: This is a 67-year-old male who presents emergency department stating that 3 weeks ago he had his prostate removed. Patient states he had a Howell catheter in place they took it out about 2 weeks ago and since then he's been able to urinate however since last night he has not been able to urinate at all and he complains of suprapubic abdominal pain. Patient denies any back pain. Patient denies any hematuria. Patient denies any fever chills. Patient denies any nausea vomiting. Patient denies any other complaints at this time. - Related Data Home Medications Medication Instructions Recorded Confirmed Aspirin [Adult Low Dose Aspirin EC] 81 mg PO DAILY 05/22/22 06/14/22 Simvastatin [Zocor] 20 mg PO HS 05/22/22 06/14/22 Warfarin [Coumadin] 2.5 mg PO SUTUTHSA@2100 05/22/22 06/14/22 Warfarin [Coumadin] 5 mg PO MOWEFR@2100 05/22/22 06/14/22 atenoloL [Tenormin] 25 mg PO DAILY 05/22/22 06/14/22 lisinopriL [Zestril] 20 mg PO DAILY 05/22/22 06/14/22 Previous Rx's Medication Instructions Recorded Sulfamethox-Tmp 800-160Mg [Bactrim 1 each PO Q12HR #14 tab 06/14/22 DS 800-160 mg] Allergies Allergy/AdvReac Type Severity Reaction Status Date / Time No Known Allergies Allergy Verified 06/14/22 13:21 Review of Systems ROS Statement: Those systems with pertinent positive or pertinent negative responses have been documented in the HPI. ROS Other: All systems not noted in ROS Statement are negative. Past Medical History Past Medical History: Coronary Artery Disease (CAD), Cancer, Hyperlipidemia, Hypertension, Prostate Disorder, Sleep Apnea/CPAP/BIPAP Additional Past Medical History / Comment(s): Mechanical heart valve, [facility] [place]. Hx BPH; Prostate shows traces of cancer cells. History of Any Multi-Drug Resistant Organisms: None Reported Past Surgical History: Cardiac Valve Replacement, Heart Catheterization, Prostate Surgery Additional Past Surgical History / Comment(s): UPPP surgery. Mitral valve repair x2, then a mechanical heart valve replacement 2010. Cataracts bilat. Past Anesthesia/Blood Transfusion Reactions: No Reported Reaction, Motion Sickness Past Psychological History: No Psychological Hx Reported Smoking Status: Former smoker Past Alcohol Use History: None Reported Past Drug Use History: None Reported - Past Family History Father Family Medical History: Prostate Disorder Additional Family Medical History / Comment(s): prostate cancer General Exam - General Exam Comments Initial Comments: GENERAL: Patient is well-developed and well-nourished. Patient is nontoxic and well- hydrated and is in mild distress. ENT: Neck is soft and supple. Neck has full range of motion without eliciting any pain. EYES: The sclera were anicteric and conjunctiva were pink and moist. Extraocular movements were intact and pupils were equal round and reactive to light. Eyelids were unremarkable. ABDOMEN: Patient has distention of the lower abdomen and tenderness in the suprapubic region. SKIN: Skin is clear with no lesions or rashes and otherwise unremarkable. NEUROLOGIC: Patient is alert and oriented x3. Cranial nerves II through XII are grossly intact. Motor and sensory are also intact. Normal speech, volume and content. Symmetrical smile. MUSCULOSKELETAL: Normal extremities with adequate strength and full range of motion. LYMPHATICS: No significant lymphadenopathy is noted PSYCHIATRIC: Normal psychiatric evaluation. Limitations: no limitations Course Vital Signs 06/14/22 12:12 Temperature 98.1 F Pulse Rate 55 L Respiratory 18 Rate Blood Pressure 116/68 O2 Sat by Pulse 99 Oximetry Medical Decision Making - Medical Decision Making Howell catheter was placed and the patient felt considerably better and no longer any abdominal pain. Patient's urine looked infected so gave the patient a gram of Rocephin. I will send the patient home on Anaprox patient follow-up with urology for removal of the Howell catheter. - Lab Data Lab Results 06/14/22 Range/Units 12:35 Urine Color Light Brown Urine Appearance Turbid (Clear) Urine pH 6.5 (5.0-8.0) Ur Specific [place] 1.020 (1.001-1.035) Urine Protein 2+ H (Negative) Urine Glucose (UA) Negative (Negative) Urine Ketones Negative (Negative) Urine Blood Large H (Negative) Urine Nitrite Negative (Negative) Urine Bilirubin Negative (Negative) Urine Urobilinogen <2.0 (<2.0) mg/dL Ur Leukocyte Esterase Large H (Negative) Urine RBC >182 H (0-5) /hpf Urine WBC >182 H (0-5) /hpf Urine WBC Clumps Many H (None) /hpf Urine Bacteria Many H (None) /hpf Urine Mucus Rare H (None) /hpf Disposition Clinical Impression: Urinary tract infection, Urinary retention Disposition: HOME SELF-CARE Condition: Good Instructions (If sedation given, give patient instructions): Urinary Tract Infection in Men (ED) Prescriptions: Sulfamethox-Tmp 800-160Mg [Bactrim DS 800-160 mg] 1 each PO Q12HR #14 tab Is patient prescribed a controlled substance at d/c from ED?: No Referrals: Kyle Xiong MD [Primary Care Provider] - 1-2 days Time of Disposition: 13:56
[2022-06-14] MEDS ORDERED: cefTRIAXone IN SWFI 1,000 MG/10 ML SYRINGE IVP STA (13:33)
[2022-06-14] MEDS ORDERED: cefTRIAXone 1,000 MG VIAL (IM USE) IM STA (13:56)
[2022-06-14 14:50] VITALS: BP 122/81; PULSE 58
== END 2022-06-14 15:01 | disposition home or self-care (01) ==
LOC: EC 12:09
DX: N39.0 Urinary tract infection, site not specified (principal); R33.9 Retention of urine, unspecified; I25.10 Atherosclerotic heart disease of native coronary artery without angina pectoris; I10 Essential (primary) hypertension; E78.5 Hyperlipidemia, unspecified; Z87.891 Personal history of nicotine dependence; Z79.82 Long term (current) use of aspirin; Z79.899 Other long term (current) drug therapy
CPT/HCPCS: 96372 ×2; 99284 ×2; 81001; 87086; 87077; 87186; 51702; J0696

== ENCOUNTER 2022-06-15 04:29 | Emergency (ER) | payer MEDICARE ==
[2022-06-15 04:34] VITALS: TEMP 97.7
--- NOTE | 2022-06-15 06:04 | ED ---
Male Urogenital HPI - General Chief complaint: Urogenital Stated complaint: catheter issues Time Seen by Provider: 06/15/22 04:53 Source: patient Mode of arrival: ambulatory Limitations: no limitations - History of Present Illness Initial comments: This patient is a 67-year-old man who presents with concern that his Howell catheter has stopped draining urine. Patient relates that he had been in the emergency department yesterday with concerns about urinary retention, he had Howell catheter placed, and was given antibiotics for suspected urinary tract infection. Patient states that he had awakened this morning with pressure sensation over the bladder area and noticed that there does not appear to be any new drainage in the catheter bag. Patient states he feels need to urinate. Patient denies fever or chills. No chest pain/dyspnea. Patient's history is notable for having prostatectomy May 25 with . He did have a Howell catheter that was discontinued after number of days and had been doing well until developing urinary retention approximately 3 days ago. MD Complaint: other -: hour(s) Location: abdomen Radiation: none Severity: moderate Quality: dull Consistency: constant Improves with: none Worsens with: none Reports: urinary retention - Related Data Home Medications Medication Instructions Recorded Confirmed Aspirin [Adult Low Dose Aspirin EC] 81 mg PO DAILY 05/22/22 06/14/22 Simvastatin [Zocor] 20 mg PO HS 05/22/22 06/14/22 Warfarin [Coumadin] 2.5 mg PO SUTUTHSA@2100 05/22/22 06/14/22 Warfarin [Coumadin] 5 mg PO MOWEFR@2100 05/22/22 06/14/22 atenoloL [Tenormin] 25 mg PO DAILY 05/22/22 06/14/22 lisinopriL [Zestril] 20 mg PO DAILY 05/22/22 06/14/22 Previous Rx's Medication Instructions Recorded Sulfamethox-Tmp 800-160Mg [Bactrim 1 each PO Q12HR #14 tab 06/14/22 DS 800-160 mg] Allergies Allergy/AdvReac Type Severity Reaction Status Date / Time No Known Allergies Allergy Verified 06/15/22 04:34 Review of Systems ROS Statement: Those systems with pertinent positive or pertinent negative responses have been documented in the HPI. ROS Other: All systems not noted in ROS Statement are negative. Constitutional: Denies: fever, chills Respiratory: Denies: cough, dyspnea Cardiovascular: Denies: chest pain, palpitations, edema Gastrointestinal: Reports: as per HPI, abdominal pain. Denies: nausea, vomiting, diarrhea, constipation Genitourinary: Reports: as per HPI, other (Urinary retention) Musculoskeletal: Denies: back pain Neurological: Denies: headache Past Medical History Past Medical History: Coronary Artery Disease (CAD), Cancer, Hyperlipidemia, Hypertension, Prostate Disorder, Sleep Apnea/CPAP/BIPAP Additional Past Medical History / Comment(s): Mechanical heart valve, [facility] [place]. Hx BPH; Prostate shows traces of cancer cells. History of Any Multi-Drug Resistant Organisms: None Reported Past Surgical History: Cardiac Valve Replacement, Heart Catheterization, Prostate Surgery Additional Past Surgical History / Comment(s): UPPP surgery. Mitral valve repair x2, then a mechanical heart valve replacement 2010. Cataracts bilat. Past Anesthesia/Blood Transfusion Reactions: No Reported Reaction, Motion Sickness Past Psychological History: No Psychological Hx Reported Smoking Status: Former smoker Past Alcohol Use History: None Reported Past Drug Use History: None Reported - Past Family History Father Family Medical History: Prostate Disorder Additional Family Medical History / Comment(s): prostate cancer General Exam Limitations: no limitations General appearance: alert, in no apparent distress Head exam: Present: atraumatic, normocephalic Eye exam: Present: normal appearance. Absent: scleral icterus, conjunctival injection Respiratory exam: Present: normal lung sounds bilaterally. Absent: respiratory distress, wheezes, rales, rhonchi, stridor Cardiovascular Exam: Present: regular rate, normal rhythm, normal heart sounds. Absent: systolic murmur, diastolic murmur, rubs, gallop GI/Abdominal exam: Present: soft. Absent: distended, tenderness, guarding, tomas ound, mass Extremities exam: Present: normal inspection. Absent: tenderness, pedal edema Back exam: Absent: CVA tenderness (R), CVA tenderness (L) Neurological exam: Present: alert Skin exam: Present: warm, dry, intact, normal color. Absent: rash Course Vital Signs 06/15/22 06/15/22 04:30 07:30 Temperature 97.7 F Pulse Rate 73 68 Respiratory 16 18 Rate Blood Pressure 133/70 126/62 O2 Sat by Pulse 97 98 Oximetry Medical Decision Making - Medical Decision Making Patient is 67-year-old man with Howell catheter obstruction. This was flushed by nursing staff and is draining well. The urine does appear to have a trace of blood and does appear to be purulent. The patient did have IV antibiotics at his previous visit. He does have prescription for antibiotics that had been filled. Disposition Clinical Impression: Urinary tract infection, Urinary retention Disposition: HOME SELF-CARE Condition: Good Instructions (If sedation given, give patient instructions): Urinary Tract Infection in Men (ED) Is patient prescribed a controlled substance at d/c from ED?: No Referrals: Kyle Xiong MD [Primary Care Provider] - 1-2 days Junior Collins MD [STAFF PHYSICIAN] - 1-2 days
[2022-06-15 07:33] VITALS: BP 126/62; PULSE 68; RESP 18
== END 2022-06-15 08:40 | disposition home or self-care (01) ==
LOC: EC 04:29
DX: N39.0 Urinary tract infection, site not specified (principal); R33.9 Retention of urine, unspecified; I25.10 Atherosclerotic heart disease of native coronary artery without angina pectoris; E78.5 Hyperlipidemia, unspecified; I10 Essential (primary) hypertension; Z87.891 Personal history of nicotine dependence; Z79.82 Long term (current) use of aspirin; Z79.01 Long term (current) use of anticoagulants; Z79.899 Other long term (current) drug therapy
CPT/HCPCS: 51798; 99283

== ENCOUNTER 2022-06-15 16:06 | Emergency (ER) | payer MEDICARE ==
[2022-06-15 16:54] VITALS: TEMP 97.7
--- NOTE | 2022-06-15 17:14 | ED ---
General Adult HPI - General Chief complaint: Abdominal Pain Stated complaint: catheter problems Time Seen by Provider: 06/15/22 17:03 Source: patient Mode of arrival: ambulatory Limitations: no limitations - History of Present Illness Initial comments: 67-year-old male with past history of prostate cancer presents emergency Department with a clogged Howell. He had a radical prostatectomy on May [address] Hastings. He had a Howell catheter in place for 1 week. This was removed and the patient was voiding fine on his own. Reports that he began having issues on . He presented to the emergency department a Howell catheter was placed. This subsequently ended up getting blocked and the patient's had to come back into the emergency department early this morning. The catheter was flushed and began draining again. He was discharged home. He reports that around noon today the catheter stopped draining again. He has suprapubic discomfort. He is currently taking Bactrim as his urinalysis when the Howell was placed demonstrated infection. He denies any fevers. No gross hematuria. No other alleviating, precipitating or modifying factors - Related Data Home Medications Medication Instructions Recorded Confirmed Aspirin [Adult Low Dose Aspirin EC] 81 mg PO DAILY 05/22/22 06/14/22 Simvastatin [Zocor] 20 mg PO HS 05/22/22 06/14/22 Warfarin [Coumadin] 2.5 mg PO SUTUTHSA@209905/22/22 06/14/22 Warfarin [Coumadin] 5 mg PO MOWEFR@2100 05/22/22 06/14/22 atenoloL [Tenormin] 25 mg PO DAILY 05/22/22 06/14/22 lisinopriL [Zestril] 20 mg PO DAILY 05/22/22 06/14/22 Previous Rx's Medication Instructions Recorded Sulfamethox-Tmp 800-160Mg [Bactrim 1 each PO Q12HR #14 tab 06/14/22 DS 800-160 mg] Allergies Allergy/AdvReac Type Severity Reaction Status Date / Time No Known Allergies Allergy Verified 06/15/22 04:34 Review of Systems ROS Statement: Those systems with pertinent positive or pertinent negative responses have been documented in the HPI. ROS Other: All systems not noted in ROS Statement are negative. Past Medical History Past Medical History: Coronary Artery Disease (CAD), Cancer, Hyperlipidemia, Hypertension, Prostate Disorder, Sleep Apnea/CPAP/BIPAP Additional Past Medical History / Comment(s): Mechanical heart valve, [facility] [place]. Hx BPH; Prostate shows traces of cancer cells. History of Any Multi-Drug Resistant Organisms: None Reported Past Surgical History: Cardiac Valve Replacement, Heart Catheterization, Prostate Surgery Additional Past Surgical History / Comment(s): UPPP surgery. Mitral valve repair x2, then a mechanical heart valve replacement 2010. Cataracts bilat. Past Anesthesia/Blood Transfusion Reactions: No Reported Reaction, Motion Sickness Past Psychological History: No Psychological Hx Reported Smoking Status: Former smoker Past Alcohol Use History: None Reported Past Drug Use History: None Reported - Past Family History Father Family Medical History: Prostate Disorder Additional Family Medical History / Comment(s): prostate cancer General Exam Limitations: no limitations General appearance: alert, in no apparent distress Respiratory exam: Present: normal lung sounds bilaterally. Absent: respiratory distress, wheezes, rales, rhonchi, stridor Cardiovascular Exam: Present: regular rate, normal rhythm, normal heart sounds. Absent: systolic murmur, diastolic murmur, rubs, gallop, clicks GI/Abdominal exam: Present: soft, distended, tenderness (suprapubic), normal bowel sounds. Absent: guarding, rebound, rigid exam: Present: normal inspection, circumcision. Absent: testicular tenderness, urethral discharge, scrotal swelling Neurological exam: Present: alert, oriented X3, CN II-XII intact Psychiatric exam: Present: normal affect, normal mood Course Vital Signs 06/15/22 06/15/22 16:52 18:33 Temperature 97.7 F Pulse Rate 63 65 Respiratory 20 18 Rate Blood Pressure 134/78 128/71 O2 Sat by Pulse 96 98 Oximetry Medical Decision Making - Medical Decision Making Upon arrival patient was placed into room 16. Thorough history and physical exam was performed. The catheter was removed and completely replaced with a 20F. We did have 200 mL of urine output however the catheter did plug after this. I did manipulate the Howell and irrigate the Howell. I am able to instill fluids however I am unable to withdraw. Because of this I did call and speak with Dr. Ramirez. He does request CT cystography. 18-[place] is placed under Dr. Ramirez' direction. Cystoscopy is performed and the results are reviewed. Dr. Ramirez does present to the emergency department and places a Howell catheter himself. He does irrigate the patient. He is able to get out 800 mL of urine. Patient is watched in the emergency room and for an hour and the Howell catheter bag continues to drain appropriately. Patient will be discharged home at this time and is instructed follow-up with urology for catheter removal. Return for any worsening symptoms. Patient agreed and was discharged home in stable condition Disposition Clinical Impression: Cancer of prostate, Urinary retention Disposition: HOME SELF-CARE Condition: Stable Instructions (If sedation given, give patient instructions): Urinary Retention in Men (ED) Additional Instructions: Please call to make an appointment with the urologist for removal of the catheter. Return for any new or worsening symptoms Is patient prescribed a controlled substance at d/c from ED?: No Referrals: Kyle Xiong MD [Primary Care Provider] - 1-2 days Junior Collins MD [STAFF PHYSICIAN] - 1-2 days Time of Disposition: 22:24
[2022-06-15] MEDS ORDERED: LIDOCAINE URO-JET JELLY 2% 5 ML KIT URETHRAL ONE (18:22)
[2022-06-15 18:38] VITALS: BP 128/71; PULSE 65; RESP 18
[2022-06-15] MEDS ORDERED: LIDOCAINE URO-JET JELLY 2% 5 ML KIT URETHRAL STA (20:53)
--- NOTE | 2022-06-15 21:10 | CT ---
CT cystogram. History prostate surgery. Urinary retention. Comparison 03/09/2022. FINDINGS: Images are obtained from the iliac crests to the floor of the pelvis without and with the bladder con trast. Contrast was injected into the urinary bladder through the Howell catheter. Initial images show mild urinary bladder wall thickening. No free fluid in the pelvis. Contrast was instilled into the urinary bladder. The urinary bladder shows deformity at the base of t he bladder related to prostatectomy. There is some mild fat stranding around the base of the urinary bladder. Howell catheter balloon is in the prostatectomy site. There is mild irregular thickening of t he urinary bladder wall that could relate to some cystitis. There are small fat-containing inguinal h ernias. The bony pelvis appears intact. The hip joints are intact. No reflux seen into the ureters. T he ureters do not appear dilated. No ascites. The appendix appears normal. Postvoid images show retention of contrast in the urinary bladder. This could relate to some atony. IMPRESSION: Deformity of the urinary bladder related to extensive prostate resection in this patient with very la rge prostate on the preoperative exam of 03/09/2022. Mild urinary bladder wall thickening at the base. Incomplete bladder emptying. Bladder tumor not excluded. This appears similar to preoperative exam.
--- NOTE | 2022-06-15 22:27 | P.GSCN ---
History of Present Illness Consult date: 06/15/22 Reason for Consult: Urinary retention Requesting physician: Susan Montiel History of present illness: The patient is a 67-year-old white male who underwent a robotic-assisted laparoscopic prostatectomy with bilateral pelvic lymphadenectomy on 05/24/2022. He has recovered well from surgery. Upon Howell catheter removal, he was regaining continence and was essentially using pads as a precaution. His cancer was organ confined. He recently developed urinary retention and underwent Howell catheter placement. He returned to the ER with a plug catheter yesterday, and again today. The catheter has been changed/irrigated, but appears to have drained incompletely. I am consulted for this reason. A CT cystogram was obtained, showing no evidence of contrast extravasation. However, it appeared upon my review that the catheter may not be fully within the bladder. Review of Systems - Constitutional Denies chills, Denies fever - Gastrointestinal Denies constipation, Denies diarrhea - Genitourinary Reports as per HPI Past Medical History Past Medical History: Coronary Artery Disease (CAD), Cancer, Hyperlipidemia, Hypertension, Prostate Disorder, Sleep Apnea/CPAP/BIPAP Additional Past Medical History / Comment(s): Mechanical heart valve, [facility] [place]. Hx BPH; Prostate shows traces of cancer cells. History of Any Multi-Drug Resistant Organisms: None Reported Past Surgical History: Cardiac Valve Replacement, Heart Catheterization, Prostate Surgery Additional Past Surgical History / Comment(s): UPPP surgery. Mitral valve repair x2, then a mechanical heart valve replacement 2010. Cataracts bilat. Past Anesthesia/Blood Transfusion Reactions: No Reported Reaction, Motion Sickness Past Psychological History: No Psychological Hx Reported Smoking Status: Former smoker Past Alcohol Use History: None Reported Past Drug Use History: None Reported - Past Family History Father Family Medical History: Prostate Disorder Additional Family Medical History / Comment(s): prostate cancer Medications and Allergies Home Medications Medication Instructions Recorded Confirmed Type Aspirin [Adult Low Dose Aspirin EC] 81 mg PO DAILY 05/22/22 06/14/22 History Simvastatin [Zocor] 20 mg PO HS 05/22/22 06/14/22 History Warfarin [Coumadin] 2.5 mg PO SUTUTHSA@209905/22/22 06/14/22 History Warfarin [Coumadin] 5 mg PO MOWEFR@209905/22/22 06/14/22 History atenoloL [Tenormin] 25 mg PO DAILY 05/22/22 06/14/22 History lisinopriL [Zestril] 20 mg PO DAILY 05/22/22 06/14/22 History Sulfamethox-Tmp 800-160Mg [Bactrim 1 each PO Q12HR #14 tab 06/14/22 Rx DS 800-160 mg] Allergies Allergy/AdvReac Type Severity Reaction Status Date / Time No Known Allergies Allergy Verified 06/15/22 04:34 Surgical - Exam Vital Signs Temp Pulse Resp BP Pulse Ox 97.7 F 63 20 134/78 96 06/15/22 16:52 06/15/22 16:52 06/15/22 16:52 06/15/22 16:52 06/15/22 16:52 - General well developed, well nourished, no distress - Respiratory normal respiratory effort - Abdomen Abdomen: soft, non tender, no guarding, no rigid, no rebound - Genitourinary normal penis with no external lesions, testicles non-tender - Psychiatric oriented to time, oriented to person, oriented to place, speech is normal, memory intact Results - Imaging CT scan - pelvis: report reviewed, image reviewed Assessment and Plan (1) Urinary retention Current Visit: No Status: Acute Code(s): R33.9 - RETENTION OF URINE, UNSPECIFIED SNOMED Code(s): 249482876 (2) Urinary tract infection Current Visit: No Status: Acute Code(s): N39.0 - URINARY TRACT INFECTION, SITE NOT SPECIFIED SNOMED Code(s): 42030554 Plan: I manually irrigated the Howell catheter numerous times, removing debris and small clots. Several hundred mL of urine was irrigated from the bladder. Once this was completed, the catheter was patent and draining well. However, I chose to remove the catheter and replace it with an 18-[place] coud-tip catheter, which I was able to advance to the hub without resistance and inflate the balloon. The catheter subsequently drained well. I'm very confident that the catheter is properly positioned and is draining well. He will be discharged home with the catheter after being observed in the ER a little while longer. He will continue to take Bactrim, pending the final urine culture result (the preliminary urine culture obtained yesterday shows greater than 100,000 gram- negative bacilli). He has been instructed to follow up with Dr. Collins.
== END 2022-06-15 23:54 | disposition home or self-care (01) ==
LOC: EC 16:06
DX: C61 Malignant neoplasm of prostate (principal); I10 Essential (primary) hypertension; I25.10 Atherosclerotic heart disease of native coronary artery without angina pectoris; E78.5 Hyperlipidemia, unspecified; Z87.891 Personal history of nicotine dependence; Z79.899 Other long term (current) drug therapy; Z79.82 Long term (current) use of aspirin; Z79.01 Long term (current) use of anticoagulants
CPT/HCPCS: 51702; 51798; 72192; 99284

== ENCOUNTER → 2022-08-02 | Outpatient (CLI) | payer MEDICARE ==
[2022-08-02 17:23] LABS: INR >9.00 (0.90-1.11); Prothrombin Time >90.0 sec (9.9-11.9)
== END | disposition home or self-care (01) ==
LOC: LABWHC1 10:11
PROVIDERS: ATTEND Internal Medicine Cardiovascular Disease
DX: I48.21 Permanent atrial fibrillation (principal)
CPT/HCPCS: 36415; 85610

== ENCOUNTER → 2023-03-29 | Outpatient (CLI) | payer MEDICARE ==
[2023-03-29 16:05] LABS: ALT 18 U/L (10-49); AST 25 U/L (14-35); Chol/HDL Ratio 3.01 Ratio; LDL Cholesterol,Calculated 71.7 mg/dL (0.0-131.0)
== END | disposition home or self-care (01) ==
LOC: LABWHC1 08:10
PROVIDERS: ATTEND Internal Medicine Cardiovascular Disease
DX: E78.2 Mixed hyperlipidemia (principal)
CPT/HCPCS: 36415; 80061; 84450; 84460

== ENCOUNTER 2024-04-25 17:52 | Emergency (ER) | payer MEDICARE ==
[2024-04-25 18:12] VITALS: TEMP 98.3
--- NOTE | 2024-04-25 18:13 | XR ---
EXAMINATION TYPE: XR ankle complete LT DATE OF EXAM: 04/25/2024 COMPARISON: None HISTORY: Pain TECHNIQUE: 3 view left ankle FINDINGS: Ankle mortise is intact. No acute fracture or dislocation is evident. Soft tissues are norm al. Plantar calcaneal heel spur is present. Follow-up exams can be performed 7-10 days from acute trauma for continued pain. IMPRESSION: 1. No acute osseous abnormality left ankle
--- NOTE | 2024-04-25 18:14 | ED ---
Fall HPI - General Chief Complaint: Fall Stated Complaint: Injury to L foot Time Seen by Provider: 04/25/24 18:05 Source: patient - History of Present Illness Initial Comments: 69-year-old male presenting to the ED with complaints of left foot/ankle pain. Patient reports he was getting ready to ride his bike when he accidentally twisted his left ankle. Reports at this time heard/felt a "snap". States he was not having any pain after this so he went on a 30 to 45-minute bike ride with no difficulties. Shortly after returning home was watching the [employer] game and when he stood up noticed pain in his left ankle prompting presentation to the ED for further evaluation. - Related Data Home Medications Medication Instructions Recorded Confirmed Aspirin [Adult Low Dose Aspirin EC] 81 mg PO DAILY 05/22/22 06/14/22 Simvastatin [Zocor] 20 mg PO HS 05/22/22 06/14/22 Warfarin [Coumadin] 2.5 mg PO SUTUTHSA@2100 05/22/22 06/14/22 Warfarin [Coumadin] 5 mg PO MOWEFR@2100 05/22/22 06/14/22 atenoloL [Tenormin] 25 mg PO DAILY 05/22/22 06/14/22 lisinopriL [Zestril] 20 mg PO DAILY 05/22/22 06/14/22 Previous Rx's Medication Instructions Recorded Sulfamethox-Tmp 800-160Mg [Bactrim 1 each PO Q12HR #14 tab 06/14/22 DS 800-160 mg] Allergies Allergy/AdvReac Type Severity Reaction Status Date / Time No Known Allergies Allergy Verified 04/25/24 17:58 Review of Systems ROS Statement: Those systems with pertinent positive or pertinent negative responses have been documented in the HPI. ROS Other: All systems not noted in ROS Statement are negative. Past Medical History Past Medical History: Coronary Artery Disease (CAD), Cancer, Hyperlipidemia, Hypertension, Prostate Disorder, Sleep Apnea/CPAP/BIPAP Additional Past Medical History / Comment(s): Mechanical heart valve, [facility] [place]. Hx BPH; Prostate shows traces of cancer cells. History of Any Multi-Drug Resistant Organisms: None Reported Past Surgical History: Cardiac Valve Replacement, Heart Catheterization, Prostate Surgery Additional Past Surgical History / Comment(s): UPPP surgery. Mitral valve repair x2, then a mechanical heart valve replacement 2010. Cataracts bilat. Past Anesthesia/Blood Transfusion Reactions: No Reported Reaction, Motion Sickness Past Psychological History: No Psychological Hx Reported Smoking Status: Former smoker Past Alcohol Use History: None Reported Past Drug Use History: None Reported - Past Family History Father Family Medical History: Prostate Disorder Additional Family Medical History / Comment(s): prostate cancer General Exam - General Exam Comments Initial Comments: Visual Physical Exam Vital signs reviewed General: Well-appearing, nontoxic, no acute distress. Head: Normocephalic, atraumatic Eyes: PERRLA, EOMI ENT: Airway patent Chest: Nonlabored breathing Skin: No visual rash, normal skin tone Neuro: Alert and oriented 3 Musculoskeletal: No gross abnormalities Limitations: no limitations General appearance: alert, in no apparent distress Eye exam: Present: normal appearance Neck exam: Present: normal inspection Respiratory exam: Present: normal lung sounds bilaterally Cardiovascular Exam: Present: regular rate GI/Abdominal exam: Present: soft Extremities exam: Present: other (Tender over the lateral malleolus and proximal left fifth digit. Ambulates without difficulty. Strength and sensation intact. DP/PT pulses intact.) Neurological exam: Present: alert, oriented X3 Skin exam: Present: warm, dry Course Vital Signs 04/25/24 17:54 Temperature 98.3 F Pulse Rate 73 Respiratory 18 Rate Blood Pressure 181/78 O2 Sat by Pulse 99 Oximetry Medical Decision Making - Medical Decision Making Was pt. sent in by a medical professional or institution ([facility], ICE HOCKEY COACH, urgent care, hospital, or long-term...) When possible be specific @ -No Did you speak to anyone other than the patient for history (EMS, parent, family, police, friend...)? What history was obtained from this source @ -No Did you review nursing and triage notes (agree or disagree)? Why? @ -I reviewed and agree with nursing and triage notes Were old charts reviewed (outside hosp., previous admission, EMS record, old EKG, old radiological studies, urgent care reports/EKG's, long-term records)? Report findings @ -No old charts were reviewed Differential Diagnosis (chest pain, altered mental status, abdominal pain women, abdominal pain men, vaginal bleeding, weakness, fever, dyspnea, syncope, headache, dizziness, GI bleed, back pain, seizure, CVA, palpatations, mental health, musculoskeletal)? @ -Differential Musculoskeletal Muscular strain, contusion, ligament sprain, fracture, arthritis, septic arthritis, bursitis, cellulitis, muscle spasm, nerve compression, DVT, arterial occlusion, herpes zoster, electrolyte abnormality, tumor.... This is not meant to be in all inclusive list EKG interpreted by me (3pts min.). @ -As above X-rays interpreted by me (1pt min.). @ -X-ray of the left ankle interpreted me revealing no evidence of acute finding. CT interpreted by me (1pt min.). @ -None done U/S interpreted by me (1pt. min.). @ -None done What testing was considered but not performed or refused? (CT, X-rays, U/S, labs)? Why? @ -None What meds were considered but not given or refused? Why? @ -None Did you discuss the management of the patient with other professionals (professionals i.e. , PA, ICE HOCKEY COACH, lab, RT, psych nurse, professor of social work, x ray equipment mechanic, teacher, air defense artillery officer, spring encaser)? Give summary @ -No Was smoking cessation discussed for >3mins.? @ -No Was critical care preformed (if so, how long)? @ -No Were there social determinants of health that impacted care today? How? (Homelessness, low income, unemployed, alcoholism, drug addiction, transportation, low edu. Level, literacy, decrease access to med. care, fdc, rehab)? @ -No Was there de-escalation of care discussed even if they declined (Discuss DNR or withdrawal of care, Hospice)? DNR status @ -No What co-morbidities impacted this encounter? (DM, HTN, Smoking, COPD, CAD, Cancer, CVA, ARF, Chemo, Hep., AIDS, mental health diagnosis, sleep apnea, morbid obesity)? @ -None Was patient admitted / discharged? Hospital course, mention meds given and route, prescriptions, significant lab abnormalities, going to OR and other pertinent info. @ -Discharge 69-year-old male presenting to the ED with complaints of ankle/left proximal pain after twisting his ankle. Reports he was able to successfully go on a 45- minute bike ride. Has been ambulating. States he started to notice pain of his left ankle/left proximal foot when he stood up from the couch while watching a [employer] game. On examination ambulates without difficulty. Tenderness to palpation over the left proximal metatarsal. Imaging of the left ankle reviewed. Imaging did include proximal left metatarsal. Imaging revealed no evidence of acute finding. Ankle wrapped and discharged home in stable condition. Advise close follow-up with his PCP. Undiagnosed new problem with uncertain prognosis? @ -No Drug Therapy requiring intensive monitoring for toxicity (Heparin, Nitro, Insulin, Cardizem)? @ -No Were any procedures done? @ -No Diagnosis/symptom? @ -Left ankle pain Acute, or Chronic, or Acute on Chronic? @ -Acute Uncomplicated (without systemic symptoms) or Complicated (systemic symptoms)? @ -Uncomplicated Side effects of treatment? @ -No Exacerbation, Progression, or Severe Exacerbation? @ -No Poses a threat to life or bodily function? How? (Chest pain, [place], [place], pneumonia, PE, COPD, DKA, ARF, appy, cholecystitis, CVA, Diverticulitis, Homicidal, Suicidal, threat to staff... and all critical care pts) @ -No Disposition Clinical Impression: Ankle sprain Disposition: HOME SELF-CARE Condition: Good Instructions (If sedation given, give patient instructions): Ankle Sprain (ED) Additional Instructions: Please return to the Emergency Department if symptoms worsen or any other concerns. Please follow-up with your primary care provider. Take over-the- counter medications as needed for pain. Is patient prescribed a controlled substance at d/c from ED?: No Referrals: Osei Mendoza MD [Primary Care Provider] - 1-2 days Time of Disposition: 18:48
[2024-04-25] MEDS: ACET/COD 300 MG/30 MG STARTER PACK 6 TAB BTL PO STA (19:01)
[2024-04-25] MEDS: IBUPROFEN 600 MG STARTER PACK 4 TAB BTL PO STA (19:02)
[2024-04-25 19:47] VITALS: BP 139/69; PULSE 58; RESP 16
== END 2024-04-25 19:06 | disposition home or self-care (01) ==
LOC: EC 17:52
DX: S93.402A Sprain of unspecified ligament of left ankle, initial encounter (principal); Z87.891 Personal history of nicotine dependence; X50.0XXA Overexertion from strenuous movement or load, initial encounter
CPT/HCPCS: 99284

== ENCOUNTER → 2024-06-23 | Outpatient (CLI) | payer MEDICARE ==
[2024-06-23 15:52] LABS: HCT 46.2 % (39.6-50.0); HGB 14.7 g/dL (13.0-17.0); MCH 29.4 pg (27.0-32.0); MCHC 31.8 g/dL (32.0-37.0); MCV 92.4 FL (80.0-97.0); Mean Platelet Volume 11.8 FL (9.5-12.2); NRBC Per 100 WBC 0 X 10*3/uL (0.00-0.01); Platelet Count 162 X 10*3/uL (140-440); RDW 14.6 % (11.5-14.5); WBC 5.19 X 10*3/uL (4.50-10.00)
[2024-06-23 16:46] LABS: NT-Pro-B-Type Natriuretic Pept 546 pg/mL (0-125)
[2024-06-23 16:56] LABS: % Iron Saturation 19.94 (15.00-50.00); ALT 15 U/L (10-49); AST 30 U/L (14-35); Albumin 4.4 g/dL (3.8-4.9); Alkaline Phosphatase 71 U/L (41-126); BUN/Creat Ratio 20.78 Ratio (12.00-20.00); Blood Urea Nitrogen 18.7 mg/dL (9.0-27.0); Calcium 8.8 mg/dL (8.7-10.3); Carbon Dioxide 22.8 mmol/L (21.6-31.8); Chloride 108 mmol/L (96-109); Ferritin 36.8 ng/mL (22.0-322.0); Globulin 2.1 g/dL (1.6-3.3); Glucose 101 mg/dL (70-110); Iron 71 UG/DL (65-175); LDL Cholesterol,Calculated 129.4 mg/dL (0.0-131.0); Potassium 4.5 mmol/L (3.5-5.5); Sodium 142 mmol/L (135-145); Total Bilirubin 0.7 mg/dL (0.3-1.2); Total Iron Binding Capacity 356 UG/DL (228-460); Total Protein 6.5 g/dL (6.2-8.2)
== END | disposition home or self-care (01) ==
LOC: LABWHC1 08:13
PROVIDERS: ATTEND Student in an Organized Health Care Education/Training Program
DX: I50.9 Heart failure, unspecified (principal); E11.22 Type 2 diabetes mellitus with diabetic chronic kidney disease; N18.9 Chronic kidney disease, unspecified; D63.1 Anemia in chronic kidney disease; E61.1 Iron deficiency
CPT/HCPCS: 36415; 80053; 80061; 82728; 83540; 83550; 83880; 84443; 84466; 85027

== ENCOUNTER → 2024-06-30 | Outpatient (CLI) | payer MEDICARE | END | disposition home or self-care (01) | LOC: LABPRL 12:34 | PROVIDERS: ATTEND Urology | DX: C61 Malignant neoplasm of prostate (principal) | CPT/HCPCS: 84153 ==

== ENCOUNTER 2025-02-11 00:02 | Emergency (ER) | payer MEDICARE ==
[2025-02-11 00:08] VITALS: TEMP 97.2
--- NOTE | 2025-02-11 01:13 | XR ---
EXAM: XR Chest, 2 Views CLINICAL HISTORY: ITS.REASON XR Reason: dysrhythmia TECHNIQUE: Frontal and lateral views of the chest. COMPARISON: No relevant prior studies available. FINDINGS: Lungs: Unremarkable. No consolidation. Pleural space: Unremarkable. No pneumothorax. Heart: Cardiomegaly. Prosthetic aortic valve. Mediastinum: Unremarkable. Bones/joints: Sternotomy wires. IMPRESSION: No acute findings in the chest.
--- NOTE | 2025-02-11 01:19 | ED ---
Dizziness HPI - General Chief Complaint: Syncope Stated Complaint: Near syncope Time Seen by Provider: 02/11/25 00:22 Source: patient Mode of arrival: ambulatory Limitations: no limitations - History of Present Illness Initial Comments: This patient is a 69-year-old man who presents to have evaluation for lightheadedness. The patient states that he was getting ready go to bed and went to lie down. He states that he started feeling lightheaded like he was going to pass out. He states that he got up and was doing some pacing and measured his blood pressure and it was in the 90s over 70s. He tried lying back down but was not feeling well so he got up and paced again and his blood pressure remained low. He states that after the third episode of this he decided to come in here. He denies associated symptoms. There have been no chest pain, dyspnea, diaphoresis, nausea or vomiting. Patient does have history of mechanical valve and does take Coumadin. Complaint: lightheadedness -: hour(s) Timing: sudden onset Description: lightheadedness History of Same: No History of Trauma: No Severity: moderate Improves With: other (Walking) Worsens With: nothing Associated Symptoms: denies other symptoms - Related Data Home Medications Medication Instructions Recorded Confirmed Aspirin [Adult Low Dose Aspirin EC] 81 mg PO DAILY 05/22/22 06/14/22 Simvastatin [Zocor] 20 mg PO HS 05/22/22 06/14/22 Warfarin [Coumadin] 2.5 mg PO SUTUTHSA@2100 05/22/22 06/14/22 Warfarin [Coumadin] 5 mg PO MOWEFR@2100 05/22/22 06/14/22 atenoloL [Tenormin] 25 mg PO DAILY 05/22/22 06/14/22 lisinopriL [Zestril] 20 mg PO DAILY 05/22/22 06/14/22 Previous Rx's Medication Instructions Recorded Sulfamethox-Tmp 800-160Mg [Bactrim 1 each PO Q12HR #14 tab 06/14/22 DS 800-160 mg] Allergies Allergy/AdvReac Type Severity Reaction Status Date / Time No Known Allergies Allergy Verified 02/11/25 00:03 Review of Systems ROS Statement: Those systems with pertinent positive or pertinent negative responses have been documented in the HPI. ROS Other: All systems not noted in ROS Statement are negative. Constitutional: Denies: fever, chills, weakness Respiratory: Denies: cough, dyspnea Cardiovascular: Reports: syncope (Near syncope). Denies: chest pain, p alpitations, dyspnea on exertion, edema Gastrointestinal: Denies: abdominal pain, nausea, vomiting, diarrhea Genitourinary: Denies: dysuria, hematuria Musculoskeletal: Denies: back pain Skin: Denies: rash Neurological: Denies: headache, weakness Past Medical History Past Medical History: Coronary Artery Disease (CAD), Cancer, Hyperlipidemia, Hypertension, Prostate Disorder, Sleep Apnea/CPAP/BIPAP Additional Past Medical History / Comment(s): Mechanical heart valve, [facility] [place]. Hx BPH; Prostate shows traces of cancer cells. History of Any Multi-Drug Resistant Organisms: None Reported Past Surgical History: Cardiac Valve Replacement, Heart Catheterization, Prostate Surgery Additional Past Surgical History / Comment(s): UPPP surgery. Mitral valve repair x2, then a mechanical heart valve replacement 2010. Cataracts bilat. Past Anesthesia/Blood Transfusion Reactions: No Reported Reaction, Motion Sickne ss Past Psychological History: No Psychological Hx Reported Smoking Status: Former smoker Past Alcohol Use History: None Reported Past Drug Use History: None Reported - Past Family History Father Family Medical History: Prostate Disorder Additional Family Medical History / Comment(s): prostate cancer General Exam Limitations: no limitations General appearance: alert, in no apparent distress Head exam: Present: atraumatic, normocephalic Eye exam: Present: normal appearance. Absent: scleral icterus, conjunctival injection ENT exam: Present: normal oropharynx Neck exam: Present: normal inspection Respiratory exam: Present: normal lung sounds bilaterally. Absent: respiratory distress, wheezes, rales, rhonchi, stridor, accessory muscle use Cardiovascular Exam: Present: regular rate, normal rhythm, systolic murmur GI/Abdominal exam: Present: soft. Absent: distended, tenderness, guarding, rebound, rigid, mass Extremities exam: Present: normal inspection, normal capillary refill. Absent: pedal edema, calf tenderness Back exam: Present: normal inspection. Absent: CVA tenderness (R), CVA tenderness (L) Neurological exam: Present: alert Skin exam: Present: warm, dry, intact, normal color. Absent: rash Course Vital Signs 02/11/25 02/11/25 02/11/25 00:03 00:35 02:31 Temperature 97.2 F L Pulse Rate 66 78 62 Respiratory 16 17 16 Rate Blood Pressure 145/83 141/82 135/80 O2 Sat by Pulse 99 98 95 Oximetry 02/11/25 03:32 Temperature Pulse Rate 62 Respiratory 16 Rate Blood Pressure 135/76 O2 Sat by Pulse 95 Oximetry Medical Decision Making - Medical Decision Making The patient had chest x-ray that I interpreted as negative for acute infiltrate, pneumothorax, congestive heart failure Was pt. sent in by a medical professional or institution (, PA, STAFF SERVICES MANAGER, urgent care, hospital, or senior living...) When possible be specific @ -[No] Did you speak to anyone other than the patient for history (EMS, parent, family, police, friend...)? What history was obtained from this source @ -[No] Did you review nursing and triage notes (agree or disagree)? Why? @ -[I reviewed and agree with nursing and triage notes] Were old charts reviewed (outside hosp., previous admission, EMS record, old EKG, old radiological studies, urgent care reports/EKG's, senior living records)? Report findings @ -[No old charts were reviewed] Differential Diagnosis (chest pain, altered mental status, abdominal pain women, abdominal pain men, vaginal bleeding, weakness, fever, dyspnea, syncope, headache, dizziness, GI bleed, back pain, seizure, CVA, palpatations, mental health, musculoskeletal)? @ -[Differential Dizziness: Benign paroxysmal positional Vertigo, Meniere's disease, otitis media, acoustic neuroma, vertebrobasilar insufficiency, cerebellar stroke, encephalitis, hypovolemic, arrhythmia, coronary artery syndrome, anemia, this is not meant to be an all-inclusive list EKG interpreted by me (3pts min.). @ -[I interpreted as above] X-rays interpreted by me (1pt min.). @ -[I interpreted as above CT interpreted by me (1pt min.). @ -[None done] U/S interpreted by me (1pt. min.). @ -[None done] What testing was considered but not performed or refused? (CT, X-rays, U/S, labs)? Why? @ -[None] What meds were considered but not given or refused? Why? @ -[None] Did you discuss the management of the patient with other professionals (professionals i.e. , PA, STAFF SERVICES MANAGER, lab, RT, psych nurse, social worker assistant, home health clinician, t eacher, customs patrol officer, bilingual patient support caseworker)? Give summary @ -[No] Was smoking cessation discussed for >3mins.? @ -[No] Was critical care preformed (if so, how long)? @ -[No] Were there social determinants of health that impacted care today? How? (Homelessness, low income, unemployed, alcoholism, drug addiction, transportation, low edu. Level, literacy, decrease access to med. care, penitentiary, rehab)? @ -[No] Was there de-escalation of care discussed even if they declined (Discuss DNR or withdrawal of care, Hospice)? DNR status @ -[No] What co-morbidities impacted this encounter? (DM, HTN, Smoking, COPD, CAD, Cancer, CVA, ARF, Chemo, Hep., AIDS, mental health diagnosis, sleep apnea, morbid obesity)? @ -[Hypertension, atrial fibrillation, history of valve replacement Was patient admitted / discharged? Hospital course, mention meds given and route, prescriptions, significant lab abnormalities, going to OR and other pertinent info. @ -[Patient is 69-year-old man here with episode of lightheadedness when he was getting ready for bed. The patient's exam is benign and the workup similar. He is feeling better and would like to go home. Discussed that there is some small risk of possible intermittent arrhythmia, but the patient would like to go home. Will have him follow-up with cardiology. Discussed return parameters. Undiagnosed new problem with uncertain prognosis? @ -[No] Drug Therapy requiring intensive monitoring for toxicity (Heparin, Nitro, Insulin, Cardizem)? @ -[No] Were any procedures done? @ -[No] Diagnosis/symptom? @ -[Acute lightheadedness Acute, or Chronic, or Acute on Chronic? @ -[Acute Uncomplicated (without systemic symptoms) or Complicated (systemic symptoms)? @ -[Uncomplicated Side effects of treatment? @ -[No] Exacerbation, Progression, or Severe Exacerbation? @ -[No] Poses a threat to life or bodily function? How? (Chest pain, [place], [place], pneumonia, PE, COPD, DKA, ARF, appy, cholecystitis, CVA, Diverticulitis, Homicidal, Suicidal, threat to staff... and all critical care pts) @ -[No] All treatments are based on ideal body weight as in ED triage - Lab Data Result diagrams: 02/11/25 00:50 02/11/25 00:55 Lab Results 02/11/25 02/11/25 02/11/25 Range/Units 00:50 00:50 00:55 WBC 6.2 (3.8-10.6) k/uL RBC 4.85 (4.30-5.90) m/uL Hgb 13.7 (13.0-17.5) gm/dL Hct 42.6 (39.0-53.0) % MCV 87.8 (80.0-100.0) fL MCH 28.2 (25.0-35.0) pg MCHC 32.1 (31.0-37.0) g/dL RDW 14.4 (11.5-15.5) % Plt Count 158 (150-450) k/uL MPV 7.8 Neutrophils % 62 % Lymphocytes % 27 % Monocytes % 6 % Eosinophils % 4 % Basophils % 0 % Neutrophils # 3.9 (1.3-7.7) k/uL Lymphocytes # 1.7 (1.0-4.8) k/uL Monocytes # 0.4 (0-1.0) k/uL Eosinophils # 0.2 (0-0.7) k/uL Basophils # 0.0 (0-0.2) k/uL PT 22.4 H (10.0-12.5) sec INR 2.2 H (<1.2) APTT 36.7 H (22.0-30.0) sec Sodium 136 L (137-145) mmol/L Potassium 4.2 (3.5-5.1) mmol/L Chloride 103 (98-107) mmol/L Carbon Dioxide 26 (22-30) mmol/L Anion Gap 7 mmol/L BUN 23 H (9-20) mg/dL Creatinine 0.76 (0.66-1.25) mg/dL Est GFR (CKD-EPI)AfAm >90 (>60 ml/min/1.73 sqM) Est GFR (CKD-EPI)NonAf >90 (>60 ml/min/1.73 sqM) Glucose 93 (74-99) mg/dL Calcium 8.9 (8.4-10.2) mg/dL Magnesium 2.2 (1.6-2.3) mg/dL Total Bilirubin 0.9 (0.2-1.3) mg/dL AST 27 (17-59) U/L ALT 20 (4-49) U/L Alkaline Phosphatase 74 (38-126) U/L Troponin I (0.000-0.034) ng/mL Total Protein 6.5 (6.3-8.2) g/dL Albumin 3.9 (3.5-5.0) g/dL 02/11/25 Range/Units 00:55 WBC (3.8-10.6) k/uL RBC (4.30-5.90) m/uL Hgb (13.0-17.5) gm/dL Hct (39.0-53.0) % MCV (80.0-100.0) fL MCH (25.0-35.0) pg MCHC (31.0-37.0) g/dL RDW (11.5-15.5) % Plt Count (150-450) k/uL MPV Neutrophils % % Lymphocytes % % Monocytes % % Eosinophils % % Basophils % % Neutrophils # (1.3-7.7) k/uL Lymphocytes # (1.0-4.8) k/uL Monocytes # (0-1.0) k/uL Eosinophils # (0-0.7) k/uL Basophils # (0-0.2) k/uL PT (10.0-12.5) sec INR (<1.2) APTT (22.0-30.0) sec Sodium (137-145) mmol/L Potassium (3.5-5.1) mmol/L Chloride (98-107) mmol/L Carbon Dioxide (22-30) mmol/L Anion Gap mmol/L BUN (9-20) mg/dL Creatinine (0.66-1.25) mg/dL Est GFR (CKD-EPI)AfAm (>60 ml/min/1.73 sqM) Est GFR (CKD-EPI)NonAf (>60 ml/min/1.73 sqM) Glucose (74-99) mg/dL Calcium (8.4-10.2) mg/dL Magnesium (1.6-2.3) mg/dL Total Bilirubin (0.2-1.3) mg/dL AST (17-59) U/L ALT (4-49) U/L Alkaline Phosphatase (38-126) U/L Troponin I <0.012 (0.000-0.034) ng/mL Total Protein (6.3-8.2) g/dL Albumin (3.5-5.0) g/dL - EKG Data -: EKG Interpreted by [facility] EKG shows normal: intervals (QRS duration 189 ms, prolonged consistent with left bundle branch block. QTc 42, normal.), QRS complexes (There is a left bundle branch block pattern.) Interpretation: other (Rhythm appears to be atrial fibrillation. Rate controlled at 67 bpm) Disposition Clinical Impression: Lightheadedness Disposition: HOME SELF-CARE Condition: Good Instructions (If sedation given, give patient instructions): Near Syncope (ED) Is patient prescribed a controlled substance at d/c from ED?: No Referrals: None,Stated [Primary Care Provider] - 1-2 days Osei Mendoza MD [Medical Doctor] - 1-2 days
[2025-02-11 02:07] LABS: Basophils % (A) 0 %; Eosinophils # (A) 0.2 k/uL (0-0.7); Eosinophils % (A) 4 %; HCT 42.6 % (39.0-53.0); HGB 13.7 gm/dL (13.0-17.5); Lymphocytes # (A) 1.7 k/uL (1.0-4.8); Lymphocytes % (A) 27 %; MCH 28.2 pg (25.0-35.0); MCHC 32.1 g/dL (31.0-37.0); MCV 87.8 fL (80.0-100.0); Mean Platelet Volume 7.8; Monocytes # (A) 0.4 k/uL (0-1.0); Monocytes % (A) 6 %; Neutrophils # (A) 3.9 k/uL (1.3-7.7); Neutrophils % (A) 62 %; Platelet Count 158 k/uL (150-450); RBC 4.85 m/uL (4.30-5.90); RDW 14.4 % (11.5-15.5); WBC 6.2 k/uL (3.8-10.6)
[2025-02-11 02:20] LABS: INR 2.2 (<1.2); Partial Thromboplastin Time 36.7 sec (22.0-30.0); Prothrombin Time 22.4 sec (10.0-12.5)
[2025-02-11 02:33] VITALS: PULSE 62; RESP 16
[2025-02-11 02:54] LABS: ALT 20 U/L (4-49); AST 27 U/L (17-59); African American GFR (CKD) >90 (>60 ml/min/1.73 sqM); Albumin 3.9 g/dL (3.5-5.0); Alkaline Phosphatase 74 U/L (38-126); Anion Gap 7 mmol/L; Blood Urea Nitrogen 23 mg/dL (9-20); Calcium 8.9 mg/dL (8.4-10.2); Carbon Dioxide 26 mmol/L (22-30); Chloride 103 mmol/L (98-107); Glucose 93 mg/dL (74-99); Magnesium 2.2 mg/dL (1.6-2.3); Non-African American GFR(CKD) >90 (>60 ml/min/1.73 sqM); Potassium 4.2 mmol/L (3.5-5.1); Sodium 136 mmol/L (137-145); Total Bilirubin 0.9 mg/dL (0.2-1.3); Total Protein 6.5 g/dL (6.3-8.2)
[2025-02-11 03:32] VITALS: BP 135/76
== END 2025-02-11 03:50 | disposition home or self-care (01) ==
LOC: EC 00:02
DX: R55 Syncope and collapse (principal); I44.7 Left bundle-branch block, unspecified; I10 Essential (primary) hypertension; I48.91 Unspecified atrial fibrillation; Z87.891 Personal history of nicotine dependence
CPT/HCPCS: 36415; 71046; 80053; 83735; 84484; 85025; 85610; 85730; 93005; 99284

== ENCOUNTER → 2025-06-08 | Outpatient (CLI) | payer MEDICARE ==
[2025-06-08 11:48] LABS: HCT 45.5 % (39.6-50.0); HGB 14.5 g/dL (13.0-17.0); MCH 29.4 pg (27.0-32.0); MCHC 31.9 g/dL (32.0-37.0); MCV 92.1 FL (80.0-97.0); NRBC Per 100 WBC 0 X 10*3/uL (0.00-0.01); Platelet Count 180 X 10*3/uL (140-440); RBC 4.94 X 10*6/uL (4.40-5.60); RDW 14.1 % (11.5-14.5); WBC 6.58 X 10*3/uL (4.50-10.00)
[2025-06-08 13:10] LABS: NT-Pro-B-Type Natriuretic Pept 490 pg/mL (0-125)
[2025-06-08 13:11] LABS: ALT 14 U/L (10-49); AST 30 U/L (14-35); Albumin 4.1 g/dL (3.8-4.9); Albumin/Globulin Ratio 2.05 Ratio (1.60-3.17); Alkaline Phosphatase 67 U/L (41-126); Anion Gap 13.00 mmol/L (4.00-12.00); BUN/Creat Ratio 15.33 Ratio (12.00-20.00); Blood Urea Nitrogen 13.8 mg/dL (9.0-27.0); C Reactive Protein, High Sens 2.190 mg/L (0.000-3.000); Calcium 8.9 mg/dL (8.7-10.3); Carbon Dioxide 24.0 mmol/L (21.6-31.8); Chloride 106 mmol/L (96-109); Cholesterol 170.00 mg/dL (0.00-200.00); Globulin 2.0 g/dL (1.6-3.3); Glucose 97 mg/dL (70-110); HDL Cholesterol 42.60 mg/dL (40.00-60.00); LDL Cholesterol,Calculated 107.0 mg/dL (0.0-131.0); Potassium 4.9 mmol/L (3.5-5.5); Sodium 143 mmol/L (135-145); Total Protein 6.1 g/dL (6.2-8.2); Triglycerides 102.00 mg/dL (0.00-149.00); VLDL Calculation 20.40 mg/dL (5.00-40.00)
== END | disposition home or self-care (01) ==
LOC: LABWHC1 07:55
PROVIDERS: ATTEND Student in an Organized Health Care Education/Training Program
DX: Z13.6 Encounter for screening for cardiovascular disorders (principal); D72.9 Disorder of white blood cells, unspecified; I50.9 Heart failure, unspecified; E11.9 Type 2 diabetes mellitus without complications; E78.5 Hyperlipidemia, unspecified; E03.9 Hypothyroidism, unspecified; R79.89 Other specified abnormal findings of blood chemistry
CPT/HCPCS: 36415; 80053; 80061; 83036; 83880; 84443; 85027; 86141